=== PATIENT | female | born 1950 | race Caucasian/White ===

== ENCOUNTER 2017-11-06 18:48 | Emergency (ER) | payer OTHER, MEDICARE ==
[~2017-11-06] VITALS: Ht 157.5 cm; Wt 75.0 kg
[2017-11-06 18:54] VITALS: BP 173/79; PULSE 66; RESP 16; TEMP 98.2; O2SAT 96
[2017-11-06] MEDS ORDERED: ASPI1TAB57 PO (18:58)
[2017-11-06] MEDS ORDERED: MULTTAB67 PO (18:58)
[2017-11-06] MEDS ORDERED: BIOT10TA PO (18:58)
[2017-11-06] MEDS ORDERED: MAGN250T11 PO (18:58)
[2017-11-06] MEDS ORDERED: DICL50TA3 PO (19:56)
[2017-11-06] MEDS ORDERED: CYCL10TA PO (19:56)
[2017-11-06] MEDS ORDERED: NAPROXEN 500 MG TAB PO ONE (20:00)
[2017-11-06] MEDS ORDERED: CYCLOBENZAPRINE HCL 10 MG TAB PO ONE (20:00)
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
== END 2017-11-06 20:09 | disposition home or self-care (01) ==
LOC: NEPD 18:48
DX: M54.9 Dorsalgia, unspecified (principal); V49.40XA Driver injured in collision with unspecified motor vehicles in traffic accident, initial encounter; Y92.410 Unspecified street and highway as the place of occurrence of the external cause; Z79.899 Other long term (current) drug therapy; Z79.82 Long term (current) use of aspirin
CPT/HCPCS: 99283